=== PATIENT | male | born 1955 | race Caucasian/White ===

== ENCOUNTER 2019-11-28 06:32 | Day surgery (SDC) | payer OTHER, SELFPAY ==
[~2019-11-28 06:32] MED LIST: Lactated Ringers 1,000 ML IV SCH; Sodium Chloride 0.9% 10 ML Syringe FLUSH PRN
[2019-11-28] MEDS ORDERED: Propofol 200 MG/20 ML SDV IV ONE (06:33)
[2019-11-28] MEDS ORDERED: Lidocaine 2% 5 ML SDV INJECT ONE (06:33)
--- NOTE | 2019-11-28 08:40 | PCM.HPR ---
H & P Addendum review - H & P Addendum Review Date of Original H & P: 11/26/19 Date Reviewed: 11/28/19 Time Reviewed: 08:00 Patient was Examined: No Changes
--- NOTE | 2019-11-28 08:42 | PCM.OPNOTE ---
- General Post-Op/Procedure Note Date of Surgery/Procedure: 11/28/19 Operative Procedure(s): EGD with Bx and Dilation Findings: Gastritis of antrum and distal esophageal stricture Pre Op Diagnosis: Dysphasia and wt loss Post-Op Diagnosis: Same Anesthesia Technique: MAC Primary Surgeon: Sorin Sepulveda Pathology: Bx of antrum and distal esophagus Complications: None Condition: Good
[2019-11-28 09:45] VITALS: BP 148/76; PULSE 66
--- NOTE | 2019-11-28 14:45 | OR ---
DATE OF OPERATION: 11/28/2019 SURGEON: Sorin Sepulveda MD PREOPERATIVE DIAGNOSIS: Dysphagia with weight loss. POSTOPERATIVE DIAGNOSES: 1. Distal esophageal stricture. 2. Gastritis of the antrum. PROCEDURES: 1. Esophagogastroduodenoscopy with biopsy. 2. Dilatation of esophageal stricture. ANESTHESIA: IV sedation. DESCRIPTION OF PROCEDURE: The patient was brought to the procedure room, where he was placed on his left side and IV sedation administered. Oral bite block was placed and the upper endoscope advanced in through the esophagus under direct vision without difficulty. The scope was advanced to the third portion of the duodenum. The duodenum and pylorus were normal. Distal antrum and pre- pyloric area have some superficial inflammation, but no ulcers or erosions. I did take 2 biopsies from this area. The body and fundus were normal. Retroflexion revealed a normal-appearing fundus. No hiatal hernia was present. In the distal esophagus at the squamocolumnar junction, was a well-defined stricture. There was no obvious esophagitis. However, I did take 2 biopsies from the distal esophagus prior to the dilatation. The balloon dilator was then inserted and sequentially inflated to 16 then 17 mm until blood was seen at the stricture site. The balloon was then deflated and removed. The scope was withdrawn through the remaining esophagus, which appeared normal. Vocal cords were viewed and appeared normal. The patient tolerated the procedure well and returned to Recovery in stable condition. The patient will follow up with Eric Chuahan next week for review of biopsies. I will have him started on omeprazole for the stricture. /[id number] SULTANA/SKYLER
== END 2019-11-28 09:35 | disposition home or self-care (01) ==
LOC: FB.SDS 06:32
PROVIDERS: ATTEND Surgery
DX: K22.2 Esophageal obstruction (principal); K29.50 Unspecified chronic gastritis without bleeding; B96.81 Helicobacter pylori [H. pylori] as the cause of diseases classified elsewhere; K21.0 Gastro-esophageal reflux disease with esophagitis; R59.0 Localized enlarged lymph nodes; J44.9 Chronic obstructive pulmonary disease, unspecified; N18.2 Chronic kidney disease, stage 2 (mild); F41.9 Anxiety disorder, unspecified; F10.20 Alcohol dependence, uncomplicated; F17.210 Nicotine dependence, cigarettes, uncomplicated; R63.4 Abnormal weight loss; Z11.59 Encounter for screening for other viral diseases; Z71.6 Tobacco abuse counseling; Z79.82 Long term (current) use of aspirin; Z68.20 Body mass index [BMI] 20.0-20.9, adult
CPT/HCPCS: 00731; 36415; 43239; 43249; 80307; 87635; 88305; 88313; 88342; C1726; J2001; J2704; J7120; U0002

== ENCOUNTER 2022-08-31 08:10 | Day surgery (SDC) | payer MEDICAID, OTHER, SELFPAY ==
[2022-08-31] MEDS ORDERED: Glycopyrrolate 0.2 MG/ML 5 ML MDV IV ONE (08:11)
[2022-08-31] MEDS ORDERED: Propofol 200 MG/20 ML SDV IV ONE (08:11)
[2022-08-31] MEDS ORDERED: Lidocaine 2% 5 ML SDV IV ONE (08:11)
[2022-08-31] MEDS ORDERED: Lactated Ringers 1,000 ML IV SCH (08:30)
[2022-08-31] MEDS ORDERED: Sodium Chloride 0.9% 10 ML Syringe FLUSH PRN (08:30)
[2022-08-31 09:19] VITALS: BP 168/97; PULSE 100
[2022-08-31] MEDS ORDERED: Simethicone Drops 40 MG/0.6 ML 30 ML Bottle PO ONE (09:52)
== END 2022-08-31 11:30 | disposition home or self-care (01) ==
LOC: FB.SDS 08:10
PROVIDERS: ATTEND Surgery
DX: Z12.11 Encounter for screening for malignant neoplasm of colon (principal); D12.6 Benign neoplasm of colon, unspecified; Q43.8 Other specified congenital malformations of intestine; F17.210 Nicotine dependence, cigarettes, uncomplicated; F10.10 Alcohol abuse, uncomplicated; Y90.9 Presence of alcohol in blood, level not specified; Z79.899 Other long term (current) drug therapy; Z86.010 Personal history of colon polyps; Z98.890 Other specified postprocedural states
CPT/HCPCS: 00812; 45380; 88305; A9270; J2704; J3490; J7120